=== PATIENT | female | born 1995 | race Caucasian/White ===

== ENCOUNTER 2020-07-01 01:16 | Emergency (ER) | payer SELFPAY ==
[2020-07-01 02:12] LABS: ABSOLUTE BASOPHILS # (AUTO) 0.1 10^3/uL (0.0-0.2); ABSOLUTE EOSINOPHILS # (AUTO) 0.2 10^3/uL (0.0-0.6); ABSOLUTE LYMPHOCYTES (AUTO) 2.9 10^3/uL (0.5-4.7); ABSOLUTE MONOCYTES (AUTO) 0.8 10^3/uL (0.1-1.4); ABSOLUTE NEUT (AUTO) 3.4 10^3/uL (1.7-8.2); BASOPHILS % (AUTO) 1.9 % (0-2); HEMATOCRIT 42.5 % (36.0-47.0); HEMOGLOBIN 14.8 g/dL (12.0-15.5); LYMPHOCYTES % (AUTO) 38.5 % (13-45); MEAN CORPUSCULAR HEMOGLOBIN 32.1 pg (27.0-33.4); MEAN CORPUSCULAR HGB CONC 34.9 g/dL (32.0-36.0); MEAN CORPUSCULAR VOLUME 92 fl (80-97); MONOCYTES % (AUTO) 11.3 % (3-13); PLATELET COUNT 178 10^3/uL (150-450); RED BLOOD COUNT 4.61 10^6/uL (3.72-5.28); RED CELL DISTRIBUTION WIDTH 12.3 % (11.5-14.0); SEGMENTED NEUTROPHILS % (AUTO) 45.3 % (42-78); TOTAL CELLS COUNTED % (AUTO) 100 %; WHITE BLOOD COUNT 7.5 10^3/uL (4.0-10.5)
[2020-07-01 02:13] LABS: APPEARANCE,URINE CLEAR; BILIRUBIN,URINE NEGATIVE (NEGATIVE); COLOR,URINE YELLOW; GLUCOSE, URINE NEGATIVE (NEGATIVE); KETONES,URINE NEGATIVE (NEGATIVE); LEUKOCYTE ESTERASE,URINE NEGATIVE (NEGATIVE); NITRITE,URINE NEGATIVE (NEGATIVE); PROTEIN,URINE NEGATIVE (NEGATIVE); URINE SPECIFIC GRAVITY 1.023; UROBILINOGEN,URINE NEGATIVE mg/dL (<2.0)
[2020-07-01] MEDS ORDERED: DICYCLOMINE HCL 10 MG CAPSULE PO ONE (02:38)
[2020-07-01] MEDS ORDERED: MAG HYDROX/AL HYDROX/SIMETH SUSP 30 ML UDCUP PO ONE (02:38)
[2020-07-01] MEDS ORDERED: LIDOCAINE 2% VISCOUS SOLN 15 ML UDCUP PO ONE (02:38)
[2020-07-01] MEDS ORDERED: METOCLOPRAMIDE HCL ORAL SOLN 10 MG/10 ML UDCUP PO ONE (02:38)
[2020-07-01 02:42] LABS: ALBUMIN 4.6 g/dL (3.5-5.0); ALKALINE PHOSPHATASE 51 U/L (38-126); ANION GAP 8 (5-19); ASPARTATE AMINO TRANSFERASE 28 U/L (14-36); BILIRUBIN,DIRECT 0.2 mg/dL (0.0-0.4); BILIRUBIN,TOTAL 0.3 mg/dL (0.2-1.3); BLOOD UREA NITROGEN 9 mg/dL (7-20); CALCIUM 9.9 mg/dL (8.4-10.2); CARBON DIOXIDE 28 mmol/L (22-30); CHLORIDE 104 mmol/L (98-107); GLUCOSE 109 mg/dL (75-110); POTASSIUM 4.3 mmol/L (3.6-5.0); TOTAL PROTEIN 7.8 g/dL (6.3-8.2)
--- NOTE | 2020-07-01 03:28 | ER Document Report ---
ED General - General Chief Complaint: Abdominal Pain Stated Complaint: ABDOMINAL PAIN VOMITING X 3 DAYS/ Primary Care Provider: LEYLA JACOB DO [NO LOCAL MD] - Follow up as needed - HPI Notes: Chief Complaint: Historian: History obtained from patient HPI: This is a 24-year-old female presents to the ER complaining of epigastric abdominal pain x4 days. Patient has associated nausea and vomiting. Tolerating minimal p.o. intake. Denies bright red blood in emesis. Patient has a history of cholecystectomy and says she has chronic diarrhea which is unchanged. She denies fever/chills, urinary symptoms, chest pain, shortness of breath. No treatments tried. Denies vaginal discharge or concern for STD. ROS: Constitutional: no fevers. HEENT: no HUTTON, sore throat, or vision changes. CV: no chest pain or palpitations. Resp: no cough or SOB. GI: Abdominal pain, nausea vomiting : no dysuria, hematuria, or incont. MSK: no back pain, no joint swelling/redness. Skin: no rashes or itching. Neuro: no seizures, weakness, numbness, or confusion. Hematological: no ecchymosis or easy bleeding. Endocrine: no polyuria/polydipsia, no heat/cold intolerance. Psych: no SI/HI, AH/VH or memory loss. PMHx: Reviewed and agree as charted by RN. PSHx: Reviewed and agree as charted by RN. SOCHx: Reviewed and agree as charted by RN. FHX: No significant familial comorbid conditions directly related to patient complaint Current Medications: Reviewed and agree with the patient medications as charted by the RN. Allergies: Reviewed and agree with the listed allergies as charted by the RN Physical Exam: Vitals: Reviewed in chart as documented by RN. General: Alert and in NAD. Head: Normocephalic; atraumatic Eyes: PERRLA, Conjunctivae clear sclerae non-icteric bilat ENT: no soft palate swelling or uvular deviation Neck: trachea midline, no unilateral swelling/tenderness/lymphadenopathy CV: RRR, no M/R/G; symmetric distal pulses Resp: respirations even and unlabored, CTA bilat. GI: abd soft and nondistended. Epigastric abdominal pain. Mildly tender to palpation. Voluntary guarding, no rebound. Normal BS. no masses/HSM. no CVAT bilat MSK: FROM of all extremities. No midline CTL spine tenderness/deformity Skin: warm, moist, good turgor. no rash/lesions Neuro: Alert and oriented X 4. following CN 2-12 intact. no unilateral weakness/numbness Psych: No SI/HI or AH/VH. Medical Decision-making/Differential Diagnosis: Consider various etiologies including but not limited to UTI, pyelonephritis, ectopic , PID, ovarian cyst, ovarian torsion STI, abdominal pain, Hernia, Acute Gastritis, Appendicitis, Partial or Complete small bowel obstruction, Cholecysitis, Diverticulitis, Gastroenteritis, GERD, Nephrolithiasis, Pancreatitis, Peptic Ulcer Disease, Urinary Tract Infection, Pyelonephritis, Infection, metabolic derangement, ect plan - Labs, urine, test. Patient is declining IVs or advanced imaging. Patient is convinced that this is likely an ulcer or gastritis and is just wanting pharmacotherapy and advice. She is aware that without further imaging there could be a serious issue that we are not diagnosing, she is aware still declines further work-up. We will give her a GI cocktail and Bentyl and reassess. She is alert and oriented, afebrile, no acute distress. This course of action was discussed with the patient and/or family. They were a menable to this, verbalized understanding, and were without further questions. - Related Data Allergies/Adverse Reactions: ketorolac [From Toradol] Allergy (Verified 07/01/20 01:32) Past Medical History - Social History Smoking Status: Current Every Day Smoker Frequency of alcohol use: Occasional Family History: Reviewed & Not Pertinent Physical Exam - Vital signs Vitals: Temp Pulse Resp BP Pulse Ox 97.9 F 83 14 90/66 L 100 07/01/20 01:07/01/20 01:07/01/20 01:07/01/20 01:07/01/20 01:26 Course - Vital Signs Vital signs: Temp Pulse Resp BP Pulse Ox 97.9 F 83 14 90/66 L 100 07/01/20 01:26 07/01/20 01:26 07/01/20 01:26 07/01/20 01:07/01/20 01:26 - Laboratory Results Result Diagrams: 07/01/20 01:41 07/01/20 01:41 Critical Laboratory Results Reviewed: No Critical Results - Radiology Results Critical Radiology Results Reviewed: No Critical Results Discharge - Discharge Clinical Impression: Epigastric pain Nausea & vomiting Qualifiers: Vomiting type: unspecified Vomiting Intractability: non-intractable Qualified Code(s): R11.2 - Nausea with vomiting, unspecified Condition: Stable Disposition: HOME, SELF-CARE Instructions: Gastritis ([facility]) Additional Instructions: Follow all printed instructions. Take medications as prescribed. Follow up with your doctor in 2-3 days for re-check. Return to the ER if your condition worsens. Prescriptions: Omeprazole 20 mg PO BID #28 capsule. Famotidine [Pepcid 20 mg Tablet] 20 mg PO BIDP PRN #20 tablet PRN Reason: Referrals: LEYLA JACOB DO [NO LOCAL MD] - Follow up as needed
[2020-07-01 04:01] VITALS: BP 115/68
== END 2020-07-01 03:58 | disposition home or self-care (01) ==
LOC: ER 01:16
DX: R10.13 Epigastric pain (principal); R11.2 Nausea with vomiting, unspecified; R19.7 Diarrhea, unspecified; F17.200 Nicotine dependence, unspecified, uncomplicated; Z90.49 Acquired absence of other specified parts of digestive tract; Z88.8 Allergy status to other drugs, medicaments and biological substances
CPT/HCPCS: 99283; 36415; 83690; 85025; 81025; 80053; 81001; J3490 ×2